=== PATIENT | male | born 1950 | race Caucasian/White ===

== ENCOUNTER 2019-02-14 03:15 | Emergency (ER) | payer OTHER ==
[~2019-02-14] VITALS: Ht 171.4 cm; Wt 65.0 kg
[~2019-02-14 03:15] MED LIST: AMOXICILLIN500 MG PO
[2019-02-14] MEDS ORDERED: METOPROL TAR25 MG PO ×2 (03:40→03:50)
[2019-02-14] MEDS ORDERED: BENADRYL 25MG C25 MG PO (03:41)
[2019-02-14] MEDS ORDERED: ASPIRIN81 MG PO (03:42)
[2019-02-14] MEDS ORDERED: VITAMIN B-12500 MCG PO (03:43)
[2019-02-14] MEDS ORDERED: AMLODIPINE BESY10 MG PO (03:43)
[2019-02-14] MEDS ORDERED: LIPITOR20 MG PO (03:44)
[2019-02-14] MEDS ORDERED: LORATADINE10 M1 PO (03:45)
[2019-02-14] MEDS ORDERED: TRAMADOL HCL50 MG PO ×2 (03:46→03:48)
[2019-02-14] MEDS ORDERED: BACLOFEN10 MG PO (03:48)
[2019-02-14 04:00] LABS: URINE BILIRUBIN - DIPSTICK NEGATIVE (NEGATIVE); URINE BLOOD DIPSTICK MODERATE (NEGATIVE); URINE COLOR YELLOW; URINE GLUCOSE - DIPSTICK NEGATIVE (NEGATIVE); URINE KETONE 40 mg/dL (NEGATIVE); URINE LEUK ESTERASE NEGATIVE (NEGATIVE); URINE NITRITE - DIPSTICK NEGATIVE (Negative); URINE PH 5.5 (4.5-8.0); URINE PROTEIN - DIPSTICK TRACE mg/dL (NEG-TRACE); URINE SPECIFIC GRAVITY 1.025; URINE UROBILINOGEN - DIPSTICK 0.2 E.U./dL (0.2)
[2019-02-14 04:00] LABS: HEMATOCRIT 39.5 % (39.0-50.0); HEMOGLOBIN 12.9 g/dl (14.0-18.0); IMMATURE GRANULOCYTES 0.4 % (0.0-5.0); MEAN CELL VOLUME 91.4 fL CALC (80.0-100.0); MEAN CORPUSCULAR HGB 29.9 pG CALC (26.0-32.0); MEAN CORPUSCULAR HGB CONC 32.7 g/L CALC (32.0-36.0); NEUT# 7.18 thou/uL (1.82-7.42); RED BLOOD COUNT 4.32 mill/uL (4.70-6.10); RED CELL DISTRI WIDTH 12.8 % (11.5-15.5)
[2019-02-14 04:05] LABS: ALBUMIN 4.5 g/dL (3.2-5.0); ALKALINE PHOSPHATASE 94 u/l (38-126); ANION GAP 16 (6-22 (CALC)); BILIRUBIN, TOTAL 2.2 mg/dL (0.0-1.4); BUN 30 mg/dL (8-23); BUN/CREATININE RATIO 28 (12-20 (CALC)); CARBON DIOXIDE 21 mmol/l (22-30); CHLORIDE 106 mmol/l (95-108); CREATININE 1.1 mg/dL (0.7-1.3); GFR > 60 ML/MIN (>=60 (CALC)); GFR FOR AFR.AMER. > 60 ML/MIN (>=60 (CALC)); LIPASE 39 u/l (23-300); POTASSIUM 4.3 mmol/l (3.5-5.1); SGOT/AST 70 u/l (19-48); SODIUM 138 mmol/l (137-146); TOTAL PROTEIN 7.6 g/dL (6.3-8.2)
[2019-02-14 04:21] LABS: MYOGLOBIN 822 ng/mL (0 - 121)
[2019-02-14 04:22] LABS: BARBITURATES NEGATIVE (NEGATIVE); COCAINE NEGATIVE (NEGATIVE); METHADONE NEGATIVE (NEGATIVE); OXCYCODONE NEGATIVE (NEGATIVE); TETRAHYDROCANNABIONOL NEGATIVE (NEGATIVE); TRICYLIC ANTIDEPRESSANTS NEGATIVE (NEGATIVE); URINE RBC 0-2 RBC/hpf (0-5)
[2019-02-14 06:00] VITALS: BP 130/68
== END 2019-02-14 06:00 | DRG 101 ==
LOC: ED 03:15
PROVIDERS: Family Medicine
PROC: 0T9B70Z Drainage of Bladder with Drainage Device, Via Natural or Artificial Opening (ICD-10-PCS; principal; 2019-02-14)
DX: R56.9 Unspecified convulsions (principal); M62.82 Rhabdomyolysis; I10 Essential (primary) hypertension; J44.9 Chronic obstructive pulmonary disease, unspecified
CPT/HCPCS: J2060